=== PATIENT | male | born 1995 | race Caucasian/White ===

== ENCOUNTER 2017-09-04 13:49 | Emergency (ER) | payer OTHER | END 2017-09-04 14:19 | disposition home or self-care (01) | LOC: NAV ERS 13:49 | DX: J06.9 Acute upper respiratory infection, unspecified (principal) | CPT/HCPCS: 99283 ==

== ENCOUNTER → 2019-09-07 | Emergency (ER) | payer OTHER ==
[~2019-09-07] MED LIST: Crotalidae Polyvalent Antivenin 1 GM VIAL ONE; Ondansetron PF 4 MG/2 ML Vial ONE; Sodium Chloride 0.9% 1,000 ML ONE; Sodium Chloride 0.9% 250 ML 250 ML ONE; diphenhydrAMINE 50 MG/ML VIAL ONE
[2019-09-08 01:08] LABS: Hemoglobin 15.6 g/dL (14.0-18.0); Mean Corpuscular HGB CONC 31.2 g/dL (32.0-36.0); Mean Corpuscular Hemoglobin 29.3 pg (27.0-31.0); Mean Corpuscular Volume 93.9 fL (78.0-98.0); Mean Platelet Volume 10.8 fL (7.4-10.4); Platelet Count 213 thou/uL (130-400); RBC Distribution Width 13.1 % (11.5-14.5); Red Blood Cell (RBC) Count 5.31 mill/uL (4.70-6.10); White Blood Cell (WBC) Count 8.4 thou/uL (4.8-10.8)
[2019-09-08 01:13] LABS: INR-International Normal Ratio 1.1; MDiff Complete? YES; Manual Diff?? YES; Prothrombin Time 13.8 sec (12.0-14.7)
[2019-09-08 01:14] LABS: Band 2 % (5-11); Eosinophils 2 % (0-10); Lymphocytes 30 % (21-51); Monocytes 3 % (0-10); Neutrophil 61 % (42-75)
[2019-09-08 01:25] LABS: AST (SGOT) 31 U/L (5-34); Albumin 4.5 g/dL (3.5-5.0); Alkaline Phosphatase 80 U/L (40-110); BUN (Urea Nitrogen) 9 mg/dL (8.9-20.6); Bilirubin, Total 1.2 mg/dL (0.2-1.2); CK (CPK) 253 U/L (30-200); Calc. Creatinine Clearance 0 mL/min (70-130); Calcium 9.8 mg/dL (7.8-10.44); Carbon Dioxide 26 mmol/L (22-29); Chloride 102 mmol/L (98-107); Estimated GFR-MDRD Greater than 90; Glucose 98 mg/dL (70-105); Potassium 3.5 mmol/L (3.5-5.1); Protein, Total 7.5 g/dL (6.0-8.3); Sodium 142 mmol/L (136-145)
[2019-09-08 01:26] LABS: ALT (SGPT) 47 U/L (8-55)
[2019-09-08 12:44] LABS: Anion Gap 18 mmol/L (10-20)
== END ==
LOC: NAV ERS 23:48
DX: T63.061A Toxic effect of venom of other North and South American snake, accidental (unintentional), initial encounter (principal); Z87.891 Personal history of nicotine dependence
CPT/HCPCS: 80053; 82550; 85025; 85384; 85610; 85730; 94760; 96365; 96375; J0840; J1200; J2405; J7050